=== PATIENT | male | born 1950 | race Caucasian/White ===

== ENCOUNTER → 2018-07-10 | Outpatient (CLI) | payer OTHER ==
--- NOTE | ~2018-07-10 | EKG ---
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 No ischemia No previous ECG available for comparison Electronically Signed On 07-10-2018 16:47:03 [employer] by Dane Silva [email or web address] <ELECTRONICALLY SIGNED> By: Dane Silva MD 07/10/18 1647 1529 1529 Dane Silva MD /AYLA
== END ==
LOC: LABMALL 14:51
DX: Z01.812 Encounter for preprocedural laboratory examination (principal); I45.10 Unspecified right bundle-branch block

== ENCOUNTER → 2019-09-04 | Outpatient (CLI) | payer OTHER | LOC: CAT 08:04 | DX: Z13.6 Encounter for screening for cardiovascular disorders (principal); I25.10 Atherosclerotic heart disease of native coronary artery without angina pectoris; E78.00 Pure hypercholesterolemia, unspecified ==

== ENCOUNTER → 2019-12-04 | Outpatient (CLI) | payer OTHER, MEDICARE | LOC: SJCVC 11:48 | DX: I45.10 Unspecified right bundle-branch block (principal); R94.31 Abnormal electrocardiogram [ECG] [EKG]; I25.10 Atherosclerotic heart disease of native coronary artery without angina pectoris; R09.89 Other specified symptoms and signs involving the circulatory and respiratory systems; I10 Essential (primary) hypertension; E78.5 Hyperlipidemia, unspecified; Z79.899 Other long term (current) drug therapy ==

== ENCOUNTER → 2020-01-23 | Outpatient (CLI) | payer OTHER, MEDICARE ==
[~2020-01-23] MED LIST: ASA81BEC PO; CRESTOR20 MG PO; DYRENIUM50 MG PO; FISH OIL 1,0001 EAC9 PO; SYNTHROID100 MC1 PO
== END ==
LOC: SJCVCIMAG 10:11
PROVIDERS: ATTEND Internal Medicine Cardiovascular Disease
DX: I65.23 Occlusion and stenosis of bilateral carotid arteries (principal); R93.1 Abnormal findings on diagnostic imaging of heart and coronary circulation; R06.09 Other forms of dyspnea; I73.9 Peripheral vascular disease, unspecified

== ENCOUNTER → 2020-01-28 | Outpatient (CLI) | payer OTHER, MEDICARE ==
[~2020-01-28] VITALS: Ht 170.2 cm; Wt 77.1 kg
--- NOTE | 2020-01-30 14:08 | PATH ---
[facility] [address] [address] PATHOLOGY RPT PROCEDURE Name: JOHN HUNTER Room #: REG CL M.R.#: [id number] Admission: 01/28/20 Date of : 54 Discharge: Report #: [id number] Path Case #: [id number] [facility] Accession Number: [id number] . 01 Material submitted: . PART A: hepatic flexure - POLYP AT HEPAITC FLEXURE PART B: splenic flexure - POLYP AT SPLENIC FLEXURE X2 PART C: colon - POLYP AT SIGMOID COLON. Modifiers: sigmoid . 01 Clinical history: . hx of polyps . 02 Diagnosis: A. Large bowel "polyp at hepatic flexure", endoscopic biopsy: - Polypoid fragment of large bowel mucosa with prominent intramucosal lymphoid aggregate. - Negative for high-grade dysplasia and malignancy. . B. Large bowel "polyp at splenic flexure", endoscopic biopsy: - Tubular adenoma; negative for high-grade dysplasia and malignancy. . C. Large bowel "polyp at sigmoid colon", endoscopic biopsy: - Polypoid fragment of large bowel mucosa with prominent intramucosal lymphoid aggregate. - Negative for dysplasia or malignancy. (ADAIR:gamaliel; 01/29/2020) QTP 01/30/2020 1326 Local . 02 Electronically signed: . Cal Mcguire MD, Pathologist NPI- [id number] . 01 Gross description: . A. The specimen is received in formalin labeled "John Hunter, polyp at hepatic flexure" and consists of multiple fragments of padilla tissue measuring 0.4 x 0.3 x 0.2 cm in aggregate which are entirely submitted in A1. . B. The specimen is received in formalin labeled "John Hunter, polyp at splenic flexure x2" and consists of multiple fragments of padilla tissue measuring 0.9 x 0.9 x 0.3 cm in aggregate which are entirely submitted in B1. . C. The specimen is received in formalin labeled "John Hunter, polyp at sigmoid colon" and consists of a fragment of padilla tissue measuring 0.3 x 0.3 x 0.2 cm which is entirely submitted in C1. ([facility]; 01/28/2020) [place] [address] PATHOLOGY RPT PROCEDURE Name: JOHN HUNTER [place] Room #: REG CLI Shahzad#: [id number] Admission: 01/28/20 Date of : 54 Discharge: Report #: [id number] Path Case #: [id number]/[id number] 01/28/2020 1826 Local . 02 Pathologist provided ICD-10: D12.3, Z86.010 . 02 CPT . 593255, 378320, 454349 Specimen Comment: A courtesy copy of this report has been sent to [phone] Specimen Comment: [phone] Specimen Comment: Report sent to / DR POLLOCK Performed at: 01 [facility] [address] [place] [id number] MD Joe Howell MD Phone: [phone] Performed at: [address] [id number] MD Leo Rich MD Phone: [phone]
== END | disposition home or self-care (01) ==
LOC: GI 07:57
DX: Z12.11 Encounter for screening for malignant neoplasm of colon (principal); Z86.010 Personal history of colon polyps; D12.3 Benign neoplasm of transverse colon; K64.8 Other hemorrhoids; K63.89 Other specified diseases of intestine; E03.9 Hypothyroidism, unspecified; E78.5 Hyperlipidemia, unspecified; Z98.890 Other specified postprocedural states; Z79.899 Other long term (current) drug therapy; Z11.59 Encounter for screening for other viral diseases; Z79.82 Long term (current) use of aspirin
CPT/HCPCS: 62110; 62900

== ENCOUNTER → 2021-01-28 | Outpatient (CLI) | payer OTHER, MEDICARE | LOC: SJCVC 13:55 | PROVIDERS: ATTEND Internal Medicine Cardiovascular Disease | DX: R94.31 Abnormal electrocardiogram [ECG] [EKG] (principal); I45.10 Unspecified right bundle-branch block; I21.9 Acute myocardial infarction, unspecified; R93.1 Abnormal findings on diagnostic imaging of heart and coronary circulation; I25.10 Atherosclerotic heart disease of native coronary artery without angina pectoris; I77.9 Disorder of arteries and arterioles, unspecified; I10 Essential (primary) hypertension; E78.5 Hyperlipidemia, unspecified; Z79.82 Long term (current) use of aspirin; Z79.899 Other long term (current) drug therapy ==